=== PATIENT | female | born 1975 | race Caucasian/White ===

== ENCOUNTER 2019-09-19 20:19 | Emergency (ER) | payer BC ==
[2019-09-19 20:45] VITALS: BP 136/75
--- NOTE | 2019-09-19 21:12 | UC ---
Complaint Female HPI - HPI Summary HPI Summary: 44-year-old female presents with complaints of UTI symptoms. States yesterday she started with some urinary frequency and hesitancy and then today developed dysuria that progressively worsened throughout the day. Associated with some suprapubic and lower back discomfort. Denies fever, chills, nausea, vomiting, flank pain, hematuria, or vaginal discharge. - History Of Current Complaint Chief Complaint: UCGU Stated Complaint: URINARY Time Seen by Provider: 09/19/19 20:45 Hx Obtained From: Patient Hx Last Menstrual Period: 08/2014 Pain Intensity: 8 - Allergies/Home Medications Allergies/Adverse Reactions: Allergies Allergy/AdvReac Type Severity Reaction Status Date / Time erythromycin base Allergy Vomiting Verified 09/19/19 20:57 Sulfa (Sulfonamide Allergy Unknown Verified 09/19/19 20:57 Antibiotics) Reaction Details sulfamethoxazole Allergy Anxiety Verified 09/19/19 20:57 [From Bactrim] trimethoprim [From Bactrim] Allergy Anxiety Verified 09/19/19 20:57 Home Medications: Home Medications Ibuprofen TAB* [Motrin TAB* 800 MG] 800 mg PO BID PRN 09/19/19 [History Confirmed 09/19/19] Loratadine/Pseudoephedrine [Claritin-D 12 Hour Tablet] 1 each PO DAILY 09/19/19 [History Confirmed 09/19/19] Phenylephrine With Allergy Med 1 tab PO DAILY PRN 09/19/19 [History Confirmed ] PMH/Surg Hx/FS Hx/Imm Hx GI/ History: Gastroesophageal Reflux Other History Of: Negative For: HIV, Hepatitis B, Hepatitis C, Anticoagulant Therapy - Surgical History Surgical History: Yes Surgery Procedure, Year, and Place: d&c x2, esure, endometrial ablation, hysterectomy 01/2019 - Family History Known Family History: Positive: Cardiac Disease, Hypertension - Social History Occupation: Employed Full-time Lives: With Family Alcohol Use: Occasionally Substance Use Type: None Smoking Status (MU): Former Smoker Type: Cigarettes When Did the Patient Quit Smoking/Using Tobacco: 2010 Review of Systems All Other Systems Reviewed And Are Negative: Yes Constitutional: Negative: Fever, Chills Respiratory: Positive: Negative Cardiovascular: Positive: Negative Gastrointestinal: Positive: Abdominal Pain - suprapubic. Negative: Vomiting, Nausea Genitourinary: Positive: Dysuria, Frequency. Negative: Hematuria, Urgency, Vaginal/Penile Discharge Musculoskeletal: Positive: Negative Neurological: Positive: Negative Is Patient Immunocompromised?: No Physical Exam - Summary Physical Exam Summary: GENERAL APPEARANCE: Alert and cooperative obese female who appears to be in no acute distress. CARDIAC: Normal S1 and S2. No S3, S4 or murmurs. Rhythm is regular. There is no peripheral edema, cyanosis or pallor. Extremities are warm and well perfused. Capillary refill is less than 2 seconds. Peripheral pulses intact. LUNGS: Clear to auscultation without rales, rhonchi, wheezing or diminished breath sounds. ABDOMEN: Positive bowel sounds. Soft, nondistended, nontender. No guarding or rebound. No masses or hepatosplenomegally. No CVA tenderness. MUSKULOSKELETAL: ROM intact to all extremities. No joint erythema or tenderness. Normal muscular development. Normal gait. SKIN: Skin normal color, texture and turgor with no lesions or eruptions. Triage Information Reviewed: Yes Vital Signs: Initial Vital Signs Temp 99.2 F 09/19/19 20:37 Pulse 77 09/19/19 20:37 Resp 18 09/19/19 20:37 BP 136/75 09/19/19 20:37 Pulse Ox 100 09/19/19 20:37 Vital Signs Reviewed: Yes Complaint Female Dx - Course Course Of Treatment: 44-year-old female presents with complaints of UTI symptoms. States yesterday she started with some urinary frequency and hesitancy and then today developed dysuria that progressively worsened throughout the day. Associated with some suprapubic and lower back discomfort. Denies fever, chills, nausea, vomiting, flank pain, hematuria, or vaginal discharge. Afebrile. Vital signs stable. Patient had an overall unremarkable exam. [id number] urinalysis showed 2+ leukocyte esterase, 3+ blood, otherwise normal. Reviewed results with the patient. Will treat for a urinary tract infection with nitrofurantoin 100 mg twice a day 5 days and provide her with Pyridium 100 mg every 8 hours 2 days to help with the discomfort. She received first doses of each of these medications in the clinic. She is to follow-up with her primary care provider in 3-5 days if symptoms are not improving. Anticipatory guidance and warning symptoms were reviewed with the patient. Verbalizes understanding and agrees with plan of care. - Differential Dx/Diagnosis Differential Diagnosis/HQI/PQRI: Renal Colic, Urinary Tract Infection, Other - Vulvovaginitis Provider Diagnosis: UTI (urinary tract infection) Discharge ED - Sign-Out/Discharge Documenting (check all that apply): Patient Departure All imaging exams completed and their final reports reviewed: No Studies - Discharge Plan Condition: Stable Disposition: HOME Patient Education Materials: Urinary Tract Infection in Women (ED) Referrals: Corrine Leo MD [Primary Care Provider] - 3 Days Additional Instructions: Your urine test in the clinic today is suggestive of a urinary tract infection. We will start you on an antibiotic to treat for the infection. We will also send a urine culture today to see what bacteria grow out and make sure the antibiotic you were prescribed is appropriate to treat the infection. It will take 48-72 hours to get these results. We will contact you if there is any change in your treatment plan. Start Macrobid 1 tab twice a day for 5 days. You were given the first dose in the clinic. Take Pyridium 1 tablet every 8 hours for next 2 days to help with the discomfort. You were given the first dose in the clinic. This medication will turn your urine an orange color. Drink plenty of fluids. To help prevent urinary tract infections: 1) Be sure to wipe from front to back. 2) Urinate immediately after any sexual intercourse. 3) Avoid taking bubble baths. Follow up with your primary care provider in 3-5 days if symptoms persist. Seek immediate medical attention in the emergency room if you develop fever greater than 100.5 F, have severe abdominal pain, persistent vomiting, or any worsening of symptoms. - Billing Disposition and Condition Condition: STABLE Disposition: Home - Attestation Statements Provider Attestation: This patient was not seen by me. I was available for consult. Chart reviewed. MARK
[2019-09-19] MEDS ORDERED: Nitrofurantoin Macrocrystals* 50 MG CAP PO ONE (21:17)
[2019-09-19] MEDS ORDERED: Phenazopyridine TAB* 100 MG PO ONE (21:21)
== END 2019-09-19 21:39 | disposition home or self-care (01) ==
LOC: UCCORT 20:19
DX: N39.0 Urinary tract infection, site not specified (principal); Z88.2 Allergy status to sulfonamides; Z88.1 Allergy status to other antibiotic agents; Z87.891 Personal history of nicotine dependence
CPT/HCPCS: 81003; 87077; 87086; 87186; 99213; A9270-GY; G0463

== ENCOUNTER 2019-11-19 11:42 | Emergency (ER) | payer BC ==
[2019-11-19 12:30] VITALS: BP 157/66
--- NOTE | 2019-11-19 13:30 | UC ---
UC General HPI - HPI Summary HPI Summary: 44 yo female c/o last couple days dysuria, freq / urg, lower mid pelvic pain radiates to the flank. No fever / chills. + hx uti's, last tx'd in August. No GI issues. - History of Current Complaint Chief Complaint: UCGU Stated Complaint: URINARY COMPLAINT Time Seen by Provider: 11/19/19 13:21 Hx Obtained From: Patient Hx Last Menstrual Period: 2013 Pain Intensity: 6 - Allergy/Home Medications Allergies/Adverse Reactions: Allergies Allergy/AdvReac Type Severity Reaction Status Date / Time erythromycin base Allergy Vomiting Verified 11/19/19 12:30 Sulfa (Sulfonamide Allergy Unknown Verified 11/19/19 12:30 Antibiotics) Reaction Details sulfamethoxazole Allergy Anxiety Verified 11/19/19 12:30 [From Bactrim] trimethoprim [From Bactrim] Allergy Anxiety Verified 11/19/19 12:30 PMH/Surg Hx/FS Hx/Imm Hx Other History Of: Negative For: HIV, Hepatitis B, Hepatitis C, Anticoagulant Therapy - Surgical History Surgical History: Yes Surgery Procedure, Year, and Place: d&c x2, esure, endometrial ablation, hysterectomy 01/2019 - Family History Known Family History: Positive: Cardiac Disease, Hypertension - Social History Alcohol Use: Occasionally Substance Use Type: None Smoking Status (MU): Former Smoker Type: Cigarettes When Did the Patient Quit Smoking/Using Tobacco: 2010 Review of Systems All Other Systems Reviewed And Are Negative: Yes Constitutional: Positive: Negative Skin: Positive: Negative Eyes: Positive: Negative ENT: Positive: Ear Ache - nonspecific left ear discomfort Respiratory: Positive: Negative Cardiovascular: Positive: Negative Gastrointestinal: Positive: Negative Genitourinary: Positive: Negative, Other - see hpi Motor: Positive: Negative Neurovascular: Positive: Negative Musculoskeletal: Positive: Negative Neurological: Positive: Negative Psychological: Positive: Negative Is Patient Immunocompromised?: No Physical Exam Triage Information Reviewed: Yes Appearance: Well-Appearing, Well-Nourished Vital Signs: Initial Vital Signs Temp 98.3 F 11/19/19 12:24 Pulse 68 11/19/19 12:24 Resp 18 11/19/19 12:24 BP 157/66 11/19/19 12:24 Pulse Ox 100 11/19/19 12:24 Eye Exam: Normal ENT: Positive: Pharynx normal, Other - mild excoriation eac, no infection oroph benign TM's clear with good light reflex subj discomfort L tmj area Neck exam: Normal Respiratory Exam: Normal Cardiovascular Exam: Normal Abdominal Exam: Other - tender suprapubic region, no cvat, no flank discomfort elicited Bowel Sounds: Positive: Present Musculoskeletal Exam: Normal - gait steady Neurological Exam: Normal - nonfocal Psychological Exam: Normal - nad Skin Exam: Normal - nondiaphoretic. no visible or reported rash. Course/Dx - Course Course Of Treatment: Reviewed urine cx from 08/2019. See [employer]. Reviewed urine dip with pt. Reviewed recommendation for blood recheck when symptoms improved. D/w pt coa / tx plan. Questions as posed answered to the best of my ability. - Diagnoses Provider Diagnosis: UTI (urinary tract infection), TMJ arthralgia Discharge ED - Sign-Out/Discharge Documenting (check all that apply): Patient Departure All imaging exams completed and their final reports reviewed: No Studies - Discharge Plan Condition: Stable Disposition: HOME Patient Education Materials: Urinary Tract Infection in Women (ED), Temporomandibular Disorder (ED) Referrals: Corrine Leo MD [Primary Care Provider] - - Billing Disposition and Condition Condition: STABLE Disposition: Home
== END 2019-11-19 13:55 | disposition home or self-care (01) ==
LOC: UCCORT 11:42
DX: N39.0 Urinary tract infection, site not specified (principal); M26.622 Arthralgia of left temporomandibular joint; H92.02 Otalgia, left ear; Z87.891 Personal history of nicotine dependence; Z88.2 Allergy status to sulfonamides; Z88.1 Allergy status to other antibiotic agents
CPT/HCPCS: 81003; 87077; 87086; 87186; 99212; G0463

== ENCOUNTER 2022-01-09 10:45 | Inpatient (IN) ==
[2022-02-13] MEDS ORDERED: Famotidine IV 10 MG/ML 2 ml VIAL (20 mg) IV ONE (06:00)
[2022-02-13] MEDS ORDERED: Buffered Lidocaine 1% SYRIN 1 ml INTRADERM ONE ×2 (06:00→06:55)
[2022-02-13] MEDS ORDERED: Lactated Ringers 1000 ml BAG 1,000 ML IV SCH (06:00)
[2022-02-13] MEDS ORDERED: Famotidine IV 10 MG/ML 2 ml VIAL (20 mg) ONE (06:31)
[2022-02-13] MEDS ORDERED: Heparin 5000 UNITS/ML 1 mL VIAL ONE (06:31)
[2022-02-13] MEDS ORDERED: ceFAZolin 1 GM ADVAN 1 GM ADDV.VIAL IVPB ONE ×2 (06:31→07:24)
[2022-02-13] MEDS ORDERED: Methylene Blue 0.5 % 50 MG/10 ML AMP IV ONE (06:52)
[2022-02-13] MEDS ORDERED: Bupivacaine 0.25% EPI 200,000 30 ML SDV ONE (06:52)
[2022-02-13] MEDS ORDERED: Naloxone 0.4 mg VIAL 0.4 mg/ml 1 ml VIAL IV PRN (07:01)
[2022-02-13] MEDS ORDERED: HYDROmorphone 1 MG/1 ML SYRINGE IV PRN (07:01)
[2022-02-13] MEDS ORDERED: fentaNYL 100 mcg/2 ml 50 MCG/ML VIAL IV PRN (07:01)
[2022-02-13] MEDS ORDERED: Rocuronium 50 mg VIAL 10 mg/ml 5 ml VIAL (50 mg) ONE ×2 (07:10→09:16)
[2022-02-13] MEDS ORDERED: Midazolam 2 mg/2 ml VIAL 1 mg/ml 2 ml VIAL (2 mg) ONE (07:11)
[2022-02-13] MEDS ORDERED: fentaNYL 250 mcg/5 ml 50 MCG/ML 5 ml VIAL (250 MCG) ONE (07:11)
[2022-02-13] MEDS ORDERED: Lidocaine 2% PF 5 ML VIAL ONE (07:14)
[2022-02-13] MEDS ORDERED: Propofol 10 MG/ML 20 ML BTL ONE (07:14)
[2022-02-13] MEDS ORDERED: Scopolamine 1 mg/72hr PATCH ONE (07:23)
[2022-02-13] MEDS ORDERED: Sugammadex 500 MG/5 ML 5 ml VIAL IV PUSH ONE (08:16)
[2022-02-13] MEDS ORDERED: HYDROmorphone 0.5 MG/0.5 ML SYRINGE ONE (08:38)
[2022-02-13] MEDS ORDERED: Acetaminophen IV 1 GM/100ML 100 ML IV ONE (09:05)
[2022-02-13] MEDS ORDERED: fentaNYL 100 mcg/2 ml 50 MCG/ML VIAL ONE ×2 (09:13→10:41)
[2022-02-13] MEDS ORDERED: diPHENhydraMINE IV 50 MG/ML 1 ml VIAL (BENADRYL) SLOW PUSH PRN (11:33)
[2022-02-13] MEDS ORDERED: Acetaminophen IV 1 GM/100ML 100 ML IV PRN (11:33)
[2022-02-13] MEDS ORDERED: HYDROmorphone 0.5 MG/0.5 ML SYRINGE IV SLOW PU PRN (11:33)
[2022-02-13] MEDS ORDERED: HYDROmorphone 1 MG/1 ML SYRINGE IV SLOW PU PRN (11:33)
[2022-02-13] MEDS ORDERED: Ondansetron 4 mg VIAL 2 MG/ML 2 ml VIAL IV PRN (11:33)
[2022-02-13] MEDS ORDERED: HYDROcodone/ACET. 7.5/325 LIQ 15 ML UDC PO PRN (11:33)
[2022-02-13] MEDS: Lactated Ringers 1000 ml BAG 1,000 ML IV SCH ×2 (14:36→22:21)
[2022-02-13] MEDS: Heparin 5000 UNITS/ML 1 mL VIAL SUBCUT SCH ×2 (16:07→22:25)
[2022-02-13] MEDS: Famotidine IV 10 MG/ML 2 ml VIAL (20 mg) IV SLOW PU SCH ×2 (21:00→22:22)
[2022-02-14] MEDS: Lactated Ringers 1000 ml BAG 1,000 ML IV SCH ×2 (05:13→11:46)
[2022-02-14] MEDS: Heparin 5000 UNITS/ML 1 mL VIAL SUBCUT SCH ×2 (06:00→14:13)
[2022-02-14] MEDS: Famotidine IV 10 MG/ML 2 ml VIAL (20 mg) IV SLOW PU SCH (10:07)
[2022-02-14 10:56] VITALS: BP 124/86
[2022-02-14] MEDS ORDERED: D5W 1/2 NS KCl 20 meq 1000 ml 1,000 ML IV SCH (12:00)
== END 2022-02-14 15:35 | disposition home or self-care (01) | DRG 403 ==
LOC: AA 02-13 05:47 → SSU 02-13 14:31
PROVIDERS: ADMIT Surgery; ATTEND Surgery

== ENCOUNTER 2022-02-14 22:04 | Observation (INO) ==
[2022-02-14] MEDS ORDERED: Ondansetron 4 mg VIAL 2 MG/ML 2 ml VIAL IV ONE (23:36)
[2022-02-15] MEDS ORDERED: Thiamine 100 MG/ML 2 ml VIAL 100 MG, Folic Acid IV 1 MG, Multiple Vitamin IV ADULT 10 M... IV ONE
[2022-02-15 00:32] LABS: ABS Lymphocytes 1.2 10^3/ul (1.0-4.8); ABS Monocytes 0.4 10^3/ul (0-0.8); Eosinophil % 0.2 %; Hematocrit 36 % (35-47); Hemoglobin 12.4 g/dL (12.0-16.0); Lymphocyte % 15.6 %; Mean Corpuscular HGB Conc 34 g/dL (31-36); Mean Corpuscular Hemoglobin 30 pg (27-31); Mean Corpuscular Volume 88 fL (80-97); Mean Platelet Volume 9.6 fL (7.4-10.4); Platelet Count 208 10^3/uL (150-450); Red Blood Count 4.13 10^6 /uL (3.70-4.87); Red Cell Distribution Width 15 % (10-15); White Blood Count 7.6 10^3/uL (3.5-10.8)
[2022-02-15 01:13] LABS: Albumin 3.7 g/dL (3.2-5.2); Albumin/Globulin Ratio 1.4 (1-3); C Reactive Protein 52.89 mg/L (<8.01); Calcium 8.8 mg/dL (8.6-10.3); Globulin 2.6 g/dL (2-4); Potassium 3.8 mmol/L (3.5-5.0); Total Bilirubin 0.5 mg/dL (0.2-1.0); Total Protein 6.3 g/dL (6.4-8.9); eGFR CKD-EPI 102.3 (>60)
[2022-02-15] MEDS ORDERED: Iohexol 300 (CONTRAST) 10 ML SDV IV ONE (01:35)
[2022-02-15] MEDS ORDERED: Ondansetron 4 mg VIAL 2 MG/ML 2 ml VIAL IV PRN (04:41)
[2022-02-15] MEDS ORDERED: HYDROcodone/ACET. 7.5/325 LIQ 15 ML UDC PO PRN (04:44)
[2022-02-15] MEDS ORDERED: Metoclopramide 5 MG/ML VIAL (10 mg) IV SLOW PU PRN (04:48)
[2022-02-15] MEDS ORDERED: HYDROmorphone 0.5 MG/0.5 ML SYRINGE IV SLOW PU PRN (04:56)
[2022-02-15] MEDS ORDERED: Lactated Ringers 1000 ml BAG 1,000 ML IV SCH (05:00)
[2022-02-15 06:14] LABS: Urine Appearance Clear; Urine Bilirubin Negative (Negative); Urine Blood Negative (Negative); Urine Color Straw; Urine Glucose Negative (Negative); Urine Ketones 1+ (Negative); Urine Nitrite Negative (Negative); Urine Protein Negative (Negative); Urine Specific Gravity 1.008 (1.002-1.030); Urine Urobilinogen Negative (Negative)
[2022-02-15] MEDS: Heparin 5000 UNITS/ML 1 mL VIAL SUBCUT SCH ×3 (07:34→21:53)
[2022-02-16] MEDS: Heparin 5000 UNITS/ML 1 mL VIAL SUBCUT SCH ×2 (05:16→13:21)
[2022-02-16 11:24] VITALS: BP 162/85
== END 2022-02-16 14:15 | disposition home or self-care (01) ==
LOC: EDHOLD 22:04 → ED 22:04 → SSU 02-15 11:05
PROVIDERS: ADMIT Surgery Surgical Critical Care; ATTEND Surgery Surgical Critical Care